=== PATIENT | female | born 1975 | race Caucasian/White ===

== ENCOUNTER → 2016-05-20 | Outpatient (REF) ==
[2004-12-15 22:32] VITALS: PULSE 85; TEMP 97.1
== END ==
LOC: ZLAB.WCH 14:44
DX: Z01.89 Encounter for other specified special examinations (principal)

== ENCOUNTER → 2017-07-09 | Outpatient (REF) ==
[2004-12-15 22:32] VITALS: PULSE 85; TEMP 97.1
== END ==
LOC: ZLAB.WCH 17:59
DX: Z01.89 Encounter for other specified special examinations (principal)

== ENCOUNTER → 2017-10-15 | Outpatient (REF) ==
[2004-12-15 22:32] VITALS: PULSE 85; TEMP 97.1
== END ==
LOC: ZLAB.WCH 17:56
DX: Z01.89 Encounter for other specified special examinations (principal)

== ENCOUNTER → 2018-01-28 | Outpatient (REF) ==
[2004-12-15 22:32] VITALS: PULSE 85; TEMP 97.1
== END ==
LOC: ZLAB.WCH 18:02
DX: Z01.89 Encounter for other specified special examinations (principal)

== ENCOUNTER → 2018-02-02 | Outpatient (REF) ==
[2004-12-15 22:32] VITALS: PULSE 85; TEMP 97.1
== END ==
LOC: ZLAB.WCH 15:53
DX: Z01.89 Encounter for other specified special examinations (principal)

== ENCOUNTER → 2019-02-13 | Outpatient (CLI) | payer BC ==
[2004-12-15 22:32] VITALS: PULSE 85; TEMP 97.1
== END ==
LOC: MC.RAD 09:08
DX: Z12.31 Encounter for screening mammogram for malignant neoplasm of breast (principal)